=== PATIENT | female | born 1975 | race African-American/Black ===

== ENCOUNTER 2024-05-07 11:50 | Emergency (ER) | payer OTHER ==
[~2024-05-07] VITALS: Ht 167.6 cm; Wt 94.0 kg
[2024-05-07 11:58] VITALS: BP 155/98; PULSE 86; RESP 16; TEMP 37.1; O2SAT 99
== END 2024-05-07 12:30 | disposition left against medical advice (07) ==
LOC: ER 11:50
DX: R07.89 Other chest pain (principal); J45.909 Unspecified asthma, uncomplicated
CPT/HCPCS: 93005; 99283